=== PATIENT | male | born 1980 | race Caucasian/White ===

== ENCOUNTER → 2019-01-06 | Day surgery (SDC) | payer BC, SELFPAY ==
[~2019-01-06] MED LIST: Acetaminophen 1,000 MG in Premix Bag 1 BAG IVPB ONE; Bupivacaine HCl 0.5%/Epinephrine 1:200,000/PF 30 ml Vial ONE; Fentanyl 100 MCG/2 ML VIAL ONE; HYDROmorphone 0.5 MG/0.5 ML SYRINGE ONE; HYDROmorphone 2 MG/ML VIAL SLOW IVP PRN; Ketorolac Tromethamine 30 MG/ML VIAL ONE; Morphine 4 MG/ML VIAL ONE; Ondansetron HCl/PF 4 MG/2 ML Vial IVP PRN; Ondansetron PF 4 MG/2 ML Vial ONE; PACU-Morphine 4MG/ML VIAL SLOW IVP PRN; Piperacillin/Tazobactam 3.375 GM VIAL ONE; Promethazine HCl 25 MG/ML VIAL IM PRN; Promethazine HCl 25 MG/ML VIAL SLOW IVP PRN
[2019-01-06 14:04] LABS: Hemoglobin 16.4 g/dL (14.0-18.0); Mean Corpuscular HGB CONC 34.3 g/dL (32.0-36.0); Mean Corpuscular Hemoglobin 31.1 pg (27.0-31.0); Mean Corpuscular Volume 90.5 fL (78.0-98.0); Mean Platelet Volume 9.4 fL (7.4-10.4); Platelet Count 200 thou/uL (130-400); RBC Distribution Width 12.3 % (11.5-14.5); Red Blood Cell (RBC) Count 5.29 mill/uL (4.70-6.10); White Blood Cell (WBC) Count 16.5 thou/uL (4.8-10.8)
[2019-01-06 14:25] LABS: Band 7 % (5-11); Eosinophils 1 % (0-10); Lymphocytes 10 % (21-51); MDiff Complete? YES; Monocytes 5 % (0-10); Neutrophil 77 % (42-75); Platelet Morphology Comment Appears Adequate; RBC Morphology Normal
[2019-01-06 14:32] LABS: ALT (SGPT) 19 U/L (8-55); AST (SGOT) 16 U/L (5-34); Albumin 4.6 g/dL (3.5-5.0); Alkaline Phosphatase 56 U/L (40-150); Anion Gap 12 mmol/L (10-20); BUN (Urea Nitrogen) 9 mg/dL (8.9-20.6); Bilirubin, Total 1.2 mg/dL (0.2-1.2); Calc. Creatinine Clearance 0 mL/min (70-130); Calcium 9.8 mg/dL (7.8-10.44); Carbon Dioxide 26 mmol/L (22-29); Chloride 100 mmol/L (98-107); Estimated GFR-MDRD 87; Globulin 2.9 g/dL (2.4-3.5); Glucose 104 mg/dL (70-105); Lipase 538 U/L (8-78); Potassium 3.6 mmol/L (3.5-5.1); Protein, Total 7.5 g/dL (6.0-8.3); Sodium 134 mmol/L (136-145)
[2019-01-06 14:33] LABS: Bilirubin Small (Negative); Blood, Urine Trace (Negative); Glucose, Urine (Dipstick) Negative (Negative); Leukocyte Negative (Negative); Nitrite Negative (Negative); Protein, Urine (Dipstick) Negative (Neg-Trace)
[2019-01-06 14:49] LABS: Clarity Clear (Clear)
[2019-01-06 14:50] LABS: RBC/HPF 0-3 HPF (0-3); Squamous Epithelial 0-3 HPF (0-3); WBC/HPF 0-3 HPF (0-3)
[2019-01-06 14:51] LABS: Bacteria/HPF None Seen HPF (None Seen)
--- NOTE | 2019-01-06 16:10 | HP ---
HISTORY OF PRESENT ILLNESS: Van Perez is a 38-year-old male patient, presented to the emergency room with onset of central periumbilical abdominal pain last evening, evolving into localization of right lower quadrant. Pain is worse with movement. He has suffered anorexia. He does not have a fever. He is evaluated in the emergency room, noted to have a white count of 16,000, hemoglobin 16. Basic metabolic profile is normal. Lipase slightly elevated. ALLERGIES: AVELOX. SOCIAL HISTORY: Tobacco, none. Alcohol, rarely. The patient is and works as a self-employed, decorative concrete. MEDICATIONS: None. PAST SURGICAL HISTORY AND MEDICAL HISTORY: Noncontributory. PHYSICAL EXAMINATION: VITAL SIGNS: Blood pressure 120/78, respiratory rate 18, heart rate 68. HEAD, EYES, EARS, NOSE, AND THROAT: Unremarkable. LUNGS: Clear to auscultation. CARDIAC: Regular rate and rhythm without murmur or gallop. ABDOMEN: Soft. Tenderness in his right lower quadrant. No guarding or rebound. Positive Rovsing sign. EXTREMITIES: Unremarkable. LABORATORY DATA: As noted. ASSESSMENT AND PLAN: Acute appendicitis. Recommend laparoscopic video appendectomy. Risks of infection, bleeding, reoperation, open operation discussed, blood transfusions, leak. His questions were answered. Job ID: [id number]
--- NOTE | 2019-01-07 00:21 | OP ---
DATE OF PROCEDURE: 01/06/2019 PREOPERATIVE DIAGNOSIS: Acute appendicitis. POSTOPERATIVE DIAGNOSIS: Acute appendicitis. PROCEDURE PERFORMED: Laparoscopic video appendectomy. ANESTHESIA: General, local 0.5% Marcaine with epinephrine 30 mL, total volume used. DRAIN: Leigh catheter placed at the beginning of the procedure and removed at the end. DESCRIPTION OF PROCEDURE: The patient was taken to the operating room. Under general anesthesia, abdomen was clipped of hair, prepared with ChloraPrep and draped in routine fashion. Local anesthetic was infiltrated in the skin and subcutaneous tissue about each port site. Infraumbilical incision made. Pneumoperitoneum to 15 mmHg obtained with a Veress needle, replaced with a 5 port, laparoscope inserted. Right subcostal incision was made. Suprapubic incision made and a 5 and 12 port placed respectively. Pneumoperitoneum to 15 mmHg obtained with a Veress needle. Once the ports were placed, appendix was noted to be acutely inflamed. Mesoappendix was taken down with the LigaSure. The stump of the appendix divided with Endo-FIDENCIO blue load stapler. The appendix was placed in Endobag and removed. Stapled cecal stump was hemostatic and secured as irrigant and pneumoperitoneum evacuated. Good hemostasis assured. Suprapubic fascia was approximated with 0 Vicryl. Skin incisions were approximated with interrupted subdermal 4-0 Monocryl and [place] glue applied. Job ID: [id number]
== END | disposition home or self-care (01) ==
LOC: ERS 13:15 → SDC/OP 20:07
PROVIDERS: ATTEND Specialist
PROC: 0DTJ4ZZ Resection of Appendix, Percutaneous Endoscopic Approach (ICD-10-PCS; principal; 2019-01-06)
DX: K35.80 Unspecified acute appendicitis (principal); Z88.1 Allergy status to other antibiotic agents
CPT/HCPCS: 36415; 80053; 81003; 81015; 83690; 85025; 88304; J0131; J0670; J1170; J1885; J2270; J2405; J2543; J3010